=== PATIENT | male | born 1935 | race Caucasian/White ===

== ENCOUNTER 2016-10-29 07:30 | Day surgery (SDC) | payer MEDICARE, OTHER ==
[~2016-10-29 07:30] MED LIST: CYCLOPENTOLATE 1% OPHTH DROPS 2 ML ONE; KETOROLAC 0.45% OPHTH DROPS ONE; PHENYLEPHRINE 2.5% OPHTH 2 ML DROPS ONE; PROPARACAINE 0.5% OPHTH DROPS 15 ML ONE
[2016-10-29] MEDS ORDERED: BRIMONIDINE 0.2% OPHTH DROPS 5 ML ONE (07:34)
[2016-10-29] MEDS ORDERED: LACTATED RINGERS 500 ML IV ONE (07:40)
[2016-10-29] MEDS ORDERED: KETOROLAC 0.45% OPHTH DROPS OPTH ONE (07:45)
[2016-10-29] MEDS ORDERED: PHENYLEPHRINE 2.5% OPHTH 2 ML DROPS OPTH ONE (07:45)
[2016-10-29] MEDS ORDERED: CYCLOPENTOLATE 1% OPHTH DROPS 2 ML OPTH ONE (07:45)
[2016-10-29] MEDS ORDERED: PROPARACAINE 0.5% OPHTH DROPS 15 ML OPTH ONE ×2 (07:45→08:57)
[2016-10-29] MEDS ORDERED: METOPROLOL 5 MG/5 ML VIAL IVP ONE (08:45)
[2016-10-29] MEDS ORDERED: MIDAZOLAM 2 MG/2 ML VIAL IVP ONE (08:45)
[2016-10-29] MEDS ORDERED: BRIMONIDINE 0.2% OPHTH DROPS 5 ML OPTH ONE (08:56)
[2016-10-29] MEDS ORDERED: BSS/LIDOCAINE/EPINEPHRINE 1 ML SYRINGE IO ONE ×2 (08:57)
[2016-10-29] MEDS ORDERED: EPINEPHrine 1 MG/ML AMP IVP ONE (08:57)
[2016-10-29] MEDS ORDERED: TIMOLOL 0.5% OPHTH DROPS OPTH ONE (08:57)
[2016-10-29] MEDS ORDERED: CHONDR SULF/HYALURONATE SYRINGE IO ONE (08:57)
[2016-10-29] MEDS ORDERED: TRIAMCIN/MOXIFLOX/VANCO 1 ML VIAL IO ONE ×2 (08:58)
[2016-10-29 09:30] VITALS: BP 118/66
--- NOTE | 2016-10-29 12:36 | OPERATIVE REPORT ---
DATE OF SURGERY: 10/29/2016 00:00:00 PREOPERATIVE DIAGNOSIS: Glaucoma, primary open angle glaucoma, poorly controlled with laser and top ical drops, therefore, cataract surgery was elected in an attempt to control his glaucoma. This is [facility] first cataract surgery. POSTOPERATIVE DIAGNOSIS: Glaucoma, primary open angle glaucoma, poorly controlled with laser and top ical drops, therefore, cataract surgery was elected in an attempt to control his glaucoma. This is [facility] first cataract surgery. NAME OF PROCEDURE: Phacoemulsification of posterior chamber intraocular lens implant, right eye. SURGEON: Dr. Ike Mendez ANESTHESIA: Monitored anesthesia care. COMPLICATIONS: None. OPERATIVE INDICATIONS: This is a 81-year-old man with some vision loss in the right eye due to 2+ nu clear sclerotic, 1+ cortical and 1+ anterior subcapsular cataract. However, cataract surgery again is being done for glaucoma. Best corrected visual acuity was 20/25 with glare to 20/70 in the right eye . INDICATIONS FOR SURGERY: Primarily glaucoma. He also had some difficulty driving in low light or at n ight and difficulty driving at night because of headlights. He was consented at length concerning ris ks and benefits of cataract surgery, after which he expressed a desire to proceed with surgery. OPERATIVE PROCEDURE: The patient was taken into OR #2 and placed under monitored anesthesia care. A s urgical time-out was conducted confirming correct patient, correct procedure and correct surgical sit e. He was given topical anesthesia and prepped and draped in the usual sterile fashion. The eye was e ntered at the 12 and 9 o'clock position. Intracameral Shugarcaine was injected into the anterior toño crissy followed by Viscoat. A continuous tear curvilinear capsulorrhexis was performed. The nucleus was hydrodissected and phacoemulsified. The cortex was evacuated using automated infusion aspiration. Pro visc was injected into the capsular bag and a 21.5 diopter intraocular lens inserted into the bag. Ap proximately 0.8 mL of a mixture of triamcinolone, moxifloxacin and vancomycin was injected subconjunc tivally in superior quadrant for infection, inflammation, and prophylaxis. I and A was used to evacua te the viscoelastic materials. The eye was inflated to physiologic pressure using balanced salt solut ion, found to be water tight. The patient was taken from the operating room in good condition, given postoperative instructions. JOB #: [id number] EXT JOB #:[id number]
== END 2016-10-29 07:31 | disposition home or self-care (01) ==
LOC: SDS 07:30
PROVIDERS: ATTEND Ophthalmology
PROC: 08RJ3JZ Replacement of Right Lens with Synthetic Substitute, Percutaneous Approach (ICD-10-PCS; principal; 2016-10-29 08:30)
DX: H40.1110 Primary open-angle glaucoma, right eye, stage unspecified (principal); M35.3 Polymyalgia rheumatica; Z87.891 Personal history of nicotine dependence; I10 Essential (primary) hypertension
CPT/HCPCS: 66984; A9270; J3490; V2632

== ENCOUNTER 2016-12-31 08:30 | Day surgery (SDC) | payer MEDICARE, OTHER ==
[~2016-12-31 08:30] MED LIST changes: +BRIMONIDINE 0.2% OPHTH DROPS 5 ML ONE; +TIMOLOL 0.5% OPHTH DROPS ONE
[2016-12-31] MEDS ORDERED: CYCLOPENTOLATE 1% OPHTH DROPS 2 ML OPTH ONE (08:55)
[2016-12-31] MEDS ORDERED: PHENYLEPHRINE 2.5% OPHTH 2 ML DROPS OPTH ONE (08:55)
[2016-12-31] MEDS ORDERED: PROPARACAINE 0.5% OPHTH DROPS 15 ML OPTH ONE ×2 (08:55→09:56)
[2016-12-31] MEDS ORDERED: KETOROLAC 0.45% OPHTH DROPS OPTH ONE (08:55)
[2016-12-31] MEDS ORDERED: LACTATED RINGERS 500 ML IV ONE (09:09)
[2016-12-31] MEDS ORDERED: MIDAZOLAM 2 MG/2 ML VIAL IVP ONE (09:50)
[2016-12-31] MEDS ORDERED: METOPROLOL 5 MG/5 ML VIAL IVP ONE (09:50)
[2016-12-31] MEDS ORDERED: EPINEPHrine 1 MG/ML AMP IVP ONE (09:55)
[2016-12-31] MEDS ORDERED: BRIMONIDINE 0.2% OPHTH DROPS 5 ML OPTH ONE (09:55)
[2016-12-31] MEDS ORDERED: CHONDR SULF/HYALURONATE SYRINGE IO ONE (09:55)
[2016-12-31] MEDS ORDERED: TIMOLOL 0.5% OPHTH DROPS OPTH ONE (09:56)
[2016-12-31] MEDS ORDERED: TRIAMCIN/MOXIFLOX/VANCO 1 ML VIAL IO ONE (09:57)
[2016-12-31] MEDS ORDERED: BSS/LIDOCAINE/EPINEPHRINE 1 ML SYRINGE IO ONE (09:57)
--- NOTE | 2016-12-31 10:32 | OPERATIVE REPORT ---
DATE OF SURGERY: 12/31/2016 00:00:00 PREOPERATIVE DIAGNOSIS: Poorly controlled open angle glaucoma. Cataract surgery is being performed in an attempt to control the glaucoma. Cataract surgery was performed on the right eye on 10/29/2016 and did eventually result in lowered pressures in that eye. POSTOPERATIVE DIAGNOSIS: Poorly controlled open angle glaucoma. Cataract surgery is being performed in an attempt to control the glaucoma. Cataract surgery was performed on the right eye on 10/29/2016 and did eventually result in lowered pressures in that eye. PROCEDURE: Phacoemulsification posterior chamber intraocular lens implant, left eye. SURGEON: Ike Mendez MD. ANESTHESIA: Monitored anesthesia care. COMPLICATIONS: None. OPERATIVE INDICATIONS: This is a 81-year-old man with glaucoma, unable to be controlled with laser for maximum tolerated medical therapy. He also has a 2+ nuclear sclerotic, 1+ cortical and 1+ anterior subcapsular cataract. His best corrected visual acuity was 20/20 with glare to 20/30, but again this surgery is being done to control glaucoma. Indications for surgery were primarily to control the open angle glaucoma; however, he does also have some complaints of difficulty driving at night and difficulty with headlights and difficulty with glare and bright lights. He was consented at length concerning the risks and benefits of cataract surgery, after which he expressed a desire to proceed with surgery. OPERATIVE PROCEDURE: The patient was taken into OR #2 and placed under monitored anesthesia care. A surgical time-out was conducted confirming the correct patient, correct procedure and correct surgical site. He was given topical anesthesia and then prepped and draped in the usual sterile fashion. The eye was entered at the 6- and 3 o'clock positions. Intracameral Shugarcaine was injected into the anterior chamber followed by Viscoat. A continuous tear curvilinear capsulorrhexis was performed. The nucleus was hydrodissected and phacoemulsified. The cortex was evacuated using automated infusion aspiration. Provisc was injected into the capsular bag, and a 20.5-diopter intraocular lens inserted into the bag. Approximately 0.7 mm of triamcinolone, moxifloxacin, and vancomycin was injected subconjunctivally in the superior quadrant for infection and inflammation prophylaxis. I/A was used to evacuate the viscoelastic materials. The eye was inflated to physiologic pressure using balanced salt solution and found to be watertight. The patient was taken from the operating room in good condition and given postoperative instructions. JOB #: [id number] EXT JOB #:[id number] KRIS
[2016-12-31 10:42] VITALS: BP 103/63
== END 2016-12-31 08:31 | disposition home or self-care (01) ==
LOC: SDS 08:30
PROVIDERS: ATTEND Ophthalmology
PROC: 08RK3JZ Replacement of Left Lens with Synthetic Substitute, Percutaneous Approach (ICD-10-PCS; principal; 2016-12-31 09:30)
DX: H25.812 Combined forms of age-related cataract, left eye (principal); H40.10X0 Unspecified open-angle glaucoma, stage unspecified; I10 Essential (primary) hypertension; M35.3 Polymyalgia rheumatica; Z79.52 Long term (current) use of systemic steroids
CPT/HCPCS: 66984; A9270; J3490; V2632

== ENCOUNTER 2017-10-11 12:31 | Outpatient (CLI) | payer MEDICARE, OTHER | END 2017-10-11 12:32 | disposition critical access hospital (66) | LOC: EMS 12:31 | PROVIDERS: ATTEND Surgery | DX: R06.02 Shortness of breath (principal); R07.9 Chest pain, unspecified | CPT/HCPCS: A0425; A0429 ==

== ENCOUNTER 2017-10-11 12:54 | Emergency (ER) | payer MEDICARE, OTHER ==
[2017-10-11] MEDS ORDERED: SODIUM CHLORIDE 0.9% 1,000 ML IV ONE (13:21)
[2017-10-11] MEDS ORDERED: IPRATROPIUM/ALBUTEROL 3 ML NEB INH STA (13:21)
[2017-10-11] MEDS ORDERED: DEXAMETHASONE 10 MG/ML VIAL IVP STA (13:22)
--- NOTE | 2017-10-11 13:24 | ED Physician Documentation ---
PD HPI URI - Stated complaint Stated Complaint: CP - Chief complaint Chief Complaint: Resp - History obtained from History obtained from: Patient, Family - History of Present Illness Timing - onset: How many weeks ago (1) Timing duration: Weeks (1) Timing details: Gradual onset, Still present Associated symptoms: Nasal congestion, Rhinorrhea, Productive cough, Dyspnea Contributing factors: Sick contact Improves by: Rest, Medication Worsened by: Activity, Breathing Similar symptoms before: Has not had sx before Recently seen: Clinic - Additional information Additional information: 82-year-old male has developed a cough and congestion over the past week. He is producing some yellow and green phlegm and is short of breath. He had something similar to this back in April and this resolved after about 2 months. He did not have the amount of wheezing that he has with this today. He has audible wheeze and was sent to the emergency department by his primary care clinic when they were not able to keep his oxygen saturations above 88% on room air. He did receive a single respiratory therapy treatment. Review of Systems Constitutional: reports: Myalgias, Fatigue. denies: Fever Eyes: denies: Loss of vision Ears: denies: Ear pain Nose: reports: Rhinorrhea / runny nose, Congestion Throat: denies: Sore throat Cardiac: reports: Chest pain / pressure, Pedal edema. denies: Palpitations, Calf pain Respiratory: reports: Dyspnea, Cough, Wheezing GI: denies: Abdominal Pain, Nausea, Vomiting : denies: Dysuria, Frequency PD PAST MEDICAL HISTORY - Past Medical History Past Medical History: Yes Cardiovascular: Hypertension Respiratory: None Endocrine/Autoimmune: None GI: None : None HEENT: Glaucoma, Macular degeneration, Chronic hearing loss Psych: None Musculoskeletal: Rheumatoid arthritis Derm: Other - Past Surgical History HEENT: Cataracts, Tonsil/Adenoidectomy Derm: Other - Present Medications Home Medications: Ambulatory Orders Medication Instructions Recorded Confirmed Dorzolamide HCl 10 ml OP DAILY 10/29/16 10/29/16 Ketorolac Tromethamine 5 ml OP DAILY 10/29/16 10/29/16 Latanoprost 0.005% Ophth Drops 40 drops EACHEYE DAILY 10/29/16 10/29/16 [Xalatan Ophth Drops] Lisinopril/Hydrochlorothiazide 1 each PO DAILY 08/03/17 08/03/17 [Lisinopril-Hctz 20-12.5 mg Tab] Metoprolol Succinate/Hctz 1 each PO DAILY 10/29/16 10/29/16 [Metoprolol ER-Hctz 50-12.5 mg] Timolol 0.5% Ophth Drops [Timoptic 75 drops EACHEYE DAILY 10/29/16 10/29/16 0.5% Ophth Drops] predniSONE [Prednisone] 10 mg PO DAILY 10/29/16 10/29/16 Albuterol Sulf [Ventolin Hfa 1 - 2 puffs INH Q4HR PRN #1 inhaler 10/11/17 Inhaler] Azithromycin [Zithromax] 250 mg PO DAILY #6 tablet 10/11/17 predniSONE [Deltasone] 10 mg PO DAILY #26 tablet 10/11/17 - Allergies Allergies/Adverse Reactions: Allergies Allergy/AdvReac Type Severity Reaction Status Date / Time No Known Drug Allergies Allergy Verified 10/29/16 08:08 - Social History Does the pt smoke?: No Smoking Status: Former smoker PD ED PE NORMAL - Vitals Vital signs reviewed: Yes (normal ) - General General: Alert and oriented X 3, Well developed/nourished, Other (coughing and audible wheeze is present ) - HEENT HEENT: Atraumatic, PERRL, EOMI, Ears normal, Other (dry mucous membranes dentures are fitting normally ) - Neck Neck: Supple, no meningeal sign, No bony TTP - Cardiac Cardiac: RRR, No murmur - Respiratory Respiratory: No respiratory distress, Other (right mid lung field rhonchi) - Abdomen Abdomen: Soft, Non tender - Back Back: No CVA TTP, No spinal TTP - Derm Derm: Normal color, Warm and dry, No rash - Extremities Extremities: No deformity, Other (trace edema bilaterally ) - Neuro Neuro: Alert and oriented X 3, senior scheduler 2-12 intact, No motor deficit, No sensory deficit, Normal speech Eye Opening: Spontaneous Motor: Obeys Commands Verbal: Oriented GCS Score: 15 - Psych Psych: Normal mood, Normal affect Results - Vitals Vitals: Vital Signs - 24 hr 10/11/17 10/11/17 10/11/17 13:06 13:44 15:00 Heart Rate 85 79 82 Respiratory 19 18 18 Rate Blood Pressure 128/60 111/68 O2 Saturation 97 93 Oxygen O2 Source Room air - Labs Labs: Laboratory Tests 10/11/17 10/11/17 10/11/17 13:30 13:30 13:30 WBC 11.8 H RBC 3.98 L Hgb 11.3 L Hct 34.4 L MCV 86.4 MCH 28.4 MCHC 32.8 RDW 14.3 Plt Count 268 MPV 7.0 L Neut # (Auto) 8.6 H Lymph # (Auto) 1.4 L [place] # (Auto) 1.6 H Eos # (Auto) 0.1 Baso # (Auto) 0.0 Absolute Nucleated RBC 0.00 Nucleated RBC % 0.0 Manual Slide Review Indicated RBC Morph Micro Appear 1+ ANISOCYTOSIS Sodium 136 Potassium 3.6 Chloride 97 L Carbon Dioxide 32 Anion Gap 7.0 BUN 31 H Creatinine 1.3 H Estimated GFR (MDRD) 53 L Glucose 127 H Calcium 8.5 Total Bilirubin 0.7 AST 33 ALT 29 Alkaline Phosphatase 40 L Troponin I < 0.04 Total Protein 7.0 Albumin 3.1 L Globulin 3.9 Albumin/Globulin Ratio 0.8 L Lipase 34 - Rads (name of study) 2 veiw chest Radiology: Prelim report reviewed (Impression acute on chronic lung disease consisting of bilateral lung infiltrates.), EMP read indepedently, See rad report Procedures - IVC sono (time) 1320 Bedside IVC sono: IVC measures (cm) (1.12), IVC collapsed c insp (cm) (completee ), Dehydration (est 1 liter deficit) PD MEDICAL DECISION MAKING - ED course Complexity details: reviewed old records, reviewed results, re-evaluated patient , considered differential, d/w patient, d/w family ED course: 82 y/o male with acute URI symptoms has pneumonia on x-ray exam. He has wheezing throughout and initially the breathing treatment does not seem to make much difference however a while after the treatment the patient feels an improvement in ease of breathing. He is administered IV decadron and IV rocephin as well. He is mildly dehydrated on interrogation of the IVC and is administered IV saline as well. - Sepsis Event Vital Signs: Vital Signs - 24 hr 10/11/17 10/11/17 10/11/17 13:06 13:44 15:00 Heart Rate 85 79 82 Respiratory 19 18 18 Rate Blood Pressure 128/60 111/68 O2 Saturation 97 93 Oxygen O2 Source Room air Departure - Departure Disposition: Home, Self Care Clinical Impression: Pneumonia Qualifiers: Pneumonia type: due to unspecified organism Laterality: bilateral Lung location : lower lobe of lung Qualified Code(s): J18.1 - Lobar pneumonia, unspecified organism Condition: Stable Instructions: ED Reactive Airway Disease, ED Pneumonia Adult Follow-Up: Yanely Batista PA [Primary Care Provider] - Prescriptions: Albuterol Sulf [Ventolin Hfa Inhaler] 1 - 2 puffs INH Q4HR PRN #1 inhaler PRN Reason: Shortness Of Air/Wheezing Azithromycin [Zithromax] 250 mg PO DAILY #6 tablet predniSONE [Deltasone] 10 mg PO DAILY #26 tablet
[2017-10-11 13:37] LABS: BASOPHILS % (AUTO) 0.4 %; EOSINOPHILS # (AUTO) 0.1 10^3/uL (0.0-0.7); EOSINOPHILS % (AUTO) 0.5 %; HGB - HEMOGLOBIN 11.3 g/dL (14.0-18.0); LYMPHOCYTES # (AUTO) 1.4 10^3/uL (1.5-3.5); LYMPHOCYTES % (AUTO) 12.2 %; MEAN CORPUSCULAR HEMOGLOBIN 28.4 pg (27.0-31.0); MEAN CORPUSCULAR HGB CONC 32.8 g/dL (32.0-36.0); MEAN CORPUSCULAR VOLUME 86.4 fL (80.0-94.0); MONOCYTES # (AUTO) 1.6 10^3/uL (0.0-1.0); MONOCYTES % (AUTO) 13.8 %; NEUTROPHILS # (AUTO) 8.6 10^3/uL (1.5-6.6); NEUTROPHILS % (AUTO) 73.1 %; PLT - PLATELET COUNT 268 10^3/uL (130-450); RED BLOOD COUNT 3.98 10^6/uL (4.70-6.10); RED CELL DISTRIBUTION WIDTH 14.3 % (12.0-15.0); WHITE BLOOD COUNT 11.8 x10^3/uL (4.8-10.8)
[2017-10-11 13:52] LABS: ALBUMIN 3.1 g/dL (3.2-5.5); ALBUMIN/GLOBULIN RATIO 0.8 (1.0-2.2); BILIRUBIN,TOTAL 0.7 mg/dL (0.2-1.0); CALCIUM 8.5 mg/dL (8.5-10.3); CREATININE 1.3 mg/dL (0.6-1.2)
[2017-10-11 14:08] LABS: RBC MORPHOLOGY (MULTIPLE) 1+ ANISOCYTOSIS (NORMAL)
--- NOTE | 2017-10-11 14:11 | XRAY Report ---
Procedure Date: 10/11/2017 Accession Number: [id number] / [id number] Procedure: XR - Chest 2 View X-Ray CPT Code: 66905 FULL RESULT: EXAM: CHEST RADIOGRAPHY EXAM DATE: 10/11/2017 01:38 PM. CLINICAL HISTORY: Shortness of breath and chest pain for several days. COMPARISON: None. TECHNIQUE: 2 views. FINDINGS: Lungs/Pleura: Faint bilateral wispy reticular nodular infiltrates, greatest on the right. Overexpanded lungs. No effusion, vascular congestion nor pneumothorax. Mediastinum: Heart and mediastinal contours are unremarkable. Other: None. IMPRESSION: Acute on chronic lung disease consisting of bilateral lung infiltrates. RADIA
[2017-10-11 15:00] VITALS: BP 111/68
[2017-10-11] MEDS ORDERED: cefTRIAXone 1 GM in SODIUM CHLORIDE 0.9% MINIBAG 100 ML IV STA (15:01)
== END 2017-10-11 15:49 | disposition home or self-care (01) ==
LOC: EDSEX → EDUNIT# → ED 12:54
DX: J18.1 Lobar pneumonia, unspecified organism (principal); E86.0 Dehydration
CPT/HCPCS: 36415; 71046; 80053; 83690; 84484; 85025; 93005; 94640; 94664; 96374; 96375; 99283; 99284

== ENCOUNTER 2018-10-12 12:04 | Outpatient (CLI) | payer MEDICARE, OTHER ==
--- NOTE | 2018-10-12 16:06 | XRAY Report ---
Reason: COPD Procedure Date: 10/12/2018 Accession Number: [id number] / [id number] Procedure: XR - Chest 2 View X-Ray CPT Code: 06911 FULL RESULT: EXAM: CHEST RADIOGRAPHY EXAM DATE: 10/12/2018 12:50 PM. CLINICAL HISTORY: COPD. Wheezing, shortness of air for 1 month, cough. COMPARISON: CHEST 2 VIEW 10/11/2017 1:33 PM. TECHNIQUE: 2 views. FINDINGS: Lungs/Pleura: No focal opacities evident. No pleural effusion. No pneumothorax. Top normal lung volumes with mild flattening of diaphragms. Mediastinum: Heart and mediastinal contours are unremarkable. Other: None. IMPRESSION: Stable exam with no acute airspace disease detected. Redemonstration of top normal lung volumes with flattened diaphragms, compatible with provided history of COPD. RADIA
== END 2018-10-12 12:05 | disposition home or self-care (01) ==
LOC: DI 12:04
PROVIDERS: ATTEND Physician Assistant
DX: J44.9 Chronic obstructive pulmonary disease, unspecified (principal)
CPT/HCPCS: 71046

== ENCOUNTER 2018-10-25 08:00 | Outpatient (CLI) | payer MEDICARE, OTHER ==
[2018-10-25 18:34] LABS: BASOPHILS # (AUTO) 0.1 10^3/uL (0.0-0.1); BASOPHILS % (AUTO) 0.8 %; EOSINOPHILS # (AUTO) 0.2 10^3/uL (0.0-0.7); EOSINOPHILS % (AUTO) 2.1 %; HGB - HEMOGLOBIN 13.1 g/dL (14.0-18.0); LYMPHOCYTES # (AUTO) 1.7 10^3/uL (1.5-3.5); LYMPHOCYTES % (AUTO) 24.3 %; MEAN CORPUSCULAR HEMOGLOBIN 28.6 pg (27.0-31.0); MEAN CORPUSCULAR HGB CONC 31.6 g/dL (32.0-36.0); MEAN CORPUSCULAR VOLUME 90.6 fL (80.0-94.0); MONOCYTES # (AUTO) 0.6 10^3/uL (0.0-1.0); MONOCYTES % (AUTO) 8.9 %; NEUTROPHILS # (AUTO) 4.6 10^3/uL (1.5-6.6); NEUTROPHILS % (AUTO) 63.5 %; PLT - PLATELET COUNT 213 10^3/uL (130-450); RED BLOOD COUNT 4.58 10^6/uL (4.70-6.10); RED CELL DISTRIBUTION WIDTH 14.1 % (12.0-15.0); WHITE BLOOD COUNT 7.2 x10^3/uL (4.8-10.8)
[2018-10-25 18:53] LABS: ALBUMIN 3.8 g/dL (3.2-5.5); ALBUMIN/GLOBULIN RATIO 1.2 (1.0-2.2); ALKALINE PHOSPHATASE 40 IU/L (42-121); ALT ALANINE AMINOTRANSFERASE 14 IU/L (10-60); AST ASPARTATE AMINOTRANSFERASE 19 IU/L (10-42); BILIRUBIN,TOTAL 1.2 mg/dL (0.2-1.0); BUN - BLOOD UREA NITROGEN 27 mg/dL (6-20); CALCIUM 9.1 mg/dL (8.5-10.3); CARBON DIOXIDE - CO2 29 mmol/L (21-32); CHLORIDE 102 mmol/L (101-111); CHOL/HDL RATIO 5.1 (<5.0); CHOLESTEROL 199 mg/dL; CREATININE 1.2 mg/dL (0.6-1.2); GFR - MDRD 58 (>89); GLUCOSE 100 mg/dL (70-100); HDL CHOLESTEROL 39 mg/dL; LDL CHOLESTEROL,CALCULATED 137 mg/dL; LDL/HDL RATIO 3.5 (<3.6); SODIUM 143 mmol/L (135-145); TOTAL PROTEIN 6.9 g/dL (6.7-8.2); VLDL CHOLESTEROL 23 mg/dL
[2018-10-26 14:56] LABS: % IRON SATURATION 31 % (20-50); IRON 89 ug/dL (45-182); TOTAL IRON BINDING CAPACITY 290 ug/dL (250-450); TRANSFERRIN 207 mg/dL (180-329)
== END 2018-10-25 23:59 | disposition home or self-care (01) ==
LOC: LAB.WCP 08:00
PROVIDERS: ATTEND Physician Assistant
DX: I10 Essential (primary) hypertension (principal); D64.9 Anemia, unspecified; Z79.899 Other long term (current) drug therapy
CPT/HCPCS: 36415; 80053; 80061; 82607; 82746; 83540; 83721; 84466; 85025

== ENCOUNTER 2019-03-23 08:00 | Outpatient (CLI) | payer MEDICARE, OTHER | END 2019-03-23 23:59 | disposition home or self-care (01) | LOC: LAB.WCP 08:00 | PROVIDERS: ATTEND Family Medicine | DX: R31.9 Hematuria, unspecified (principal) | CPT/HCPCS: 81002 ==

== ENCOUNTER 2019-03-24 11:44 | Outpatient (CLI) | payer MEDICARE, OTHER | END 2019-03-24 11:45 | disposition home or self-care (01) | LOC: LAB 11:44 | PROVIDERS: ATTEND Family Medicine | DX: R31.9 Hematuria, unspecified (principal) | CPT/HCPCS: 87086 ==

== ENCOUNTER 2020-01-26 07:00 | Outpatient (CLI) | payer MEDICARE, OTHER ==
[2020-01-26 18:36] LABS: BILIRUBIN,URINE NEGATIVE (NEGATIVE); GLUCOSE, URINE (UA) NEGATIVE (NEGATIVE); KETONES,URINE (UA) NEGATIVE (NEGATIVE); LEUKOCYTE ESTERASE, URINE NEGATIVE (NEGATIVE); NITRITE,URINE NEGATIVE (NEGATIVE); OCCULT BLOOD,URINE LARGE (NEGATIVE); PH,URINE 5.5 PH (5.0-7.5); PROTEIN,URINE NEGATIVE (NEGATIVE); UROBILINOGEN,URINE 0.2 (NORMAL) E.U./dL (NORMAL)
[2020-01-26 18:49] LABS: CLARITY,URINE HAZY (CLEAR)
[2020-01-26 19:00] LABS: BACTERIA,URINE None Seen /HPF (None Seen); SQUAMOUS EPITHELIAL CELL,UR NONE SEEN (<= Few)
== END 2020-01-26 23:59 | disposition home or self-care (01) ==
LOC: LAB.R 07:00
PROVIDERS: ATTEND Physician Assistant
DX: R31.9 Hematuria, unspecified (principal)
CPT/HCPCS: 81001; 87086

== ENCOUNTER 2020-01-26 15:47 | Outpatient (CLI) | payer MEDICARE, OTHER ==
[2020-01-26 18:20] LABS: BASOPHILS # (AUTO) 0.1 10^3/uL (0.0-0.1); BASOPHILS % (AUTO) 0.6 %; EOSINOPHILS # (AUTO) 0.3 10^3/uL (0.0-0.7); EOSINOPHILS % (AUTO) 4.1 %; HGB - HEMOGLOBIN 13.5 g/dL (14.0-18.0); LYMPHOCYTES # (AUTO) 2.2 10^3/uL (1.5-3.5); MEAN CORPUSCULAR HEMOGLOBIN 28.7 pg (27.0-31.0); MEAN CORPUSCULAR HGB CONC 31.7 g/dL (32.0-36.0); MEAN CORPUSCULAR VOLUME 90.4 fL (80.0-94.0); MEAN PLATELET VOLUME 9.7 fL (7.4-11.4); MONOCYTES # (AUTO) 0.7 10^3/uL (0.0-1.0); MONOCYTES % (AUTO) 8.8 %; NEUTROPHILS # (AUTO) 4.5 10^3/uL (1.5-6.6); NEUTROPHILS % (AUTO) 58.1 %; PLT - PLATELET COUNT 204 10^3/uL (130-450); RED BLOOD COUNT 4.71 10^6/uL (4.70-6.10); RED CELL DISTRIBUTION WIDTH 13.2 % (12.0-15.0); WHITE BLOOD COUNT 7.7 x10^3/uL (4.8-10.8)
[2020-01-26 18:26] LABS: ALBUMIN 3.9 g/dL (3.2-5.5); ALBUMIN/GLOBULIN RATIO 1.3 (1.0-2.2); BILIRUBIN,TOTAL 0.7 mg/dL (0.2-1.0); CALCIUM 9.2 mg/dL (8.5-10.3); CREATININE 1.4 mg/dL (0.6-1.2)
[2020-01-26 18:38] LABS: PSA FREE 0.458 ng/mL (0.16-2.81)
[2020-01-26 18:40] LABS: PSA TOTAL 2.364 ng/mL (0.000-2.000)
== END 2020-01-26 23:59 | disposition home or self-care (01) ==
LOC: LAB.WCP 15:47
PROVIDERS: ATTEND Physician Assistant
DX: R31.9 Hematuria, unspecified (principal)
CPT/HCPCS: 36415; 80053; 84153; 84154; 85025

== ENCOUNTER 2020-02-05 10:48 | Outpatient (CLI) | payer MEDICARE ==
[2020-02-05] MEDS ORDERED: IOVERSOL 320 100 ML VIAL IVP ONE ×2 (11:01→11:13)
--- NOTE | 2020-02-05 15:33 | CT Report ---
PROCEDURE: IVP INDICATIONS: HEMATURIA CONTRAST: IV CONTRAST: Optiray 320 ml: 140 PO CONTRAST: *NO PO CONTRAST TECHNIQUE: After the administration of intravenous contrast, 5 mm thick sections acquired from the diaphragms to the symphysis. 5 mm thick coronal and sagittal reformats were acquired. For radiation dose reducti on, the following was used: automated exposure control, adjustment of mA and/or kV according to wilda ent size. COMPARISON: None. FINDINGS: Image quality: Excellent. Lung bases: Lung bases are clear. Moderate coronary and aortic valvular calcification. Moderate zita cending thoracic aortic atherosclerotic disease. Heart size is normal. Urinary system: Both kidneys are normal in size and enhancement. 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 The right mid ureter demonstrates a segment of irregular wall thickening and enhancement just above t he bony pelvis for length of about 3.2 cm. This results in increased caliber of the ureter measuring up to about 10 mm. No significant periureteric inflammation. No evidence of nephrolithiasis. A 2.6 cm cyst is present in the midpole of the left kidney. Subcentimeter cysts are seen in the left upper an d right lower pole. Contrast-filled renal calyces are normal in morphology. The urinary bladder is on ly partially filled but the wall has normal morphology given this limitation. The prostate gland is m ildly enlarged. Solid organs: Numerous thin-walled cysts of varying sizes throughout the liver, the largest measurin g only about 2.7 cm, and most less than 1 cm. The spleen is normal. There is mild diffuse thickening of the medial limb of the right adrenal gland. No discrete nodules. Gallbladder is unremarkable. Bi liary system is non dilated. Pancreas enhances normally. Peritoneum and bowel: Bowel loops demonstrate normal wall thickness and caliber. No free fluid or a ir. Nodes and vessels: Heavy abdominal aortic and branch artery calcification. No aortic aneurysm. No re troperitoneal or mesenteric adenopathy by size criteria. Aorta and inferior vena cava are normal in size. Abdominal wall: No ventral hernias. Pelvis: No pathologic free pelvic fluid. No inguinal hernias or adenopathy. Bones: No suspicious bony lesions. Severe degenerative changes in the hips and moderate degenerativ e change throughout the spine. No vertebral body compression fractures. IMPRESSION: 1. Irregular, 3.2 cm long segment of ureteral thickening in the right mid ureter just above the level of the pelvic inlet. While this may represent benign etiology such as debris or chronic stricture, n eoplasm such as transitional cell carcinoma should be excluded. Urology consult and ureteroscopy is r ecommended. 2. 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 3. No visible suspicious upper pole collecting system lesions. 4. Heavy coronary artery calcification. Reviewed by: Hilda Rod MD on 02/05/2020 3:32 PM PST Approved by: Hilda Rod MD on 02/05/2020 3:32 PM PST Station ID: [id number]
== END 2020-02-05 10:49 | disposition home or self-care (01) ==
LOC: DI 10:48
PROVIDERS: ATTEND Physician Assistant
DX: R31.9 Hematuria, unspecified (principal); N28.89 Other specified disorders of kidney and ureter; N28.1 Cyst of kidney, acquired; K76.89 Other specified diseases of liver
CPT/HCPCS: 74178; Q9967

== ENCOUNTER 2020-03-11 12:39 | Outpatient (CLI) | payer MEDICARE | END 2020-03-11 12:40 | disposition home or self-care (01) | LOC: LAB 12:39 | PROVIDERS: ATTEND Urology | DX: R93.89 Abnormal findings on diagnostic imaging of other specified body structures (principal); Z87.448 Personal history of other diseases of urinary system; R35.1 Nocturia; R39.15 Urgency of urination; R35.0 Frequency of micturition; Z11.9 Encounter for screening for infectious and parasitic diseases, unspecified | CPT/HCPCS: 87086 ==

== ENCOUNTER 2020-06-28 08:00 | Outpatient (CLI) | payer MEDICARE ==
[2020-06-28 18:36] LABS: BASOPHILS # (AUTO) 0.1 10^3/uL (0.0-0.1); BASOPHILS % (AUTO) 0.9 %; EOSINOPHILS # (AUTO) 0.4 10^3/uL (0.0-0.7); EOSINOPHILS % (AUTO) 6.8 %; HCT - HEMATOCRIT 43.6 % (42.0-52.0); HGB - HEMOGLOBIN 13.7 g/dL (14.0-18.0); LYMPHOCYTES # (AUTO) 1.3 10^3/uL (1.5-3.5); LYMPHOCYTES % (AUTO) 19.7 %; MEAN CORPUSCULAR HEMOGLOBIN 29.1 pg (27.0-31.0); MEAN CORPUSCULAR HGB CONC 31.4 g/dL (32.0-36.0); MEAN CORPUSCULAR VOLUME 92.8 fL (80.0-94.0); MEAN PLATELET VOLUME 10.3 fL (7.4-11.4); MONOCYTES # (AUTO) 0.6 10^3/uL (0.0-1.0); MONOCYTES % (AUTO) 9.4 %; NEUTROPHILS # (AUTO) 4.1 10^3/uL (1.5-6.6); PLT - PLATELET COUNT 198 10^3/uL (130-450); RED CELL DISTRIBUTION WIDTH 13.8 % (12.0-15.0); WHITE BLOOD COUNT 6.5 x10^3/uL (4.8-10.8)
[2020-06-28 19:03] LABS: ALBUMIN 4.2 g/dL (3.2-5.5); ALBUMIN/GLOBULIN RATIO 1.3 (1.0-2.2); ALKALINE PHOSPHATASE 42 IU/L (42-121); ALT ALANINE AMINOTRANSFERASE 13 IU/L (10-60); AST ASPARTATE AMINOTRANSFERASE 19 IU/L (10-42); BILIRUBIN,TOTAL 1.6 mg/dL (0.2-1.0); BUN - BLOOD UREA NITROGEN 27 mg/dL (6-20); CALCIUM 9.2 mg/dL (8.5-10.3); CARBON DIOXIDE - CO2 32 mmol/L (21-32); CHLORIDE 100 mmol/L (101-111); CHOL/HDL RATIO 5.2 (<5.0); CHOLESTEROL 204 mg/dL; CREATININE 1.4 mg/dL (0.6-1.2); GFR - MDRD 48 (>89); GLUCOSE 96 mg/dL (70-100); HDL CHOLESTEROL 39 mg/dL; LDL CHOLESTEROL,CALCULATED 139 mg/dL; LDL/HDL RATIO 3.6 (<3.6); SODIUM 141 mmol/L (135-145); TOTAL PROTEIN 7.5 g/dL (6.7-8.2); TRIGLYCERIDES 129 mg/dL; VLDL CHOLESTEROL 26 mg/dL
[2020-06-28 19:20] LABS: THYROID STIMULATING HORMONE 2.87 uIU/mL (0.34-5.60)
== END 2020-06-28 23:59 | disposition home or self-care (01) ==
LOC: LAB.WCP 08:00
PROVIDERS: ATTEND Internal Medicine
DX: D64.9 Anemia, unspecified (principal); I25.10 Atherosclerotic heart disease of native coronary artery without angina pectoris; I10 Essential (primary) hypertension; Z79.899 Other long term (current) drug therapy
CPT/HCPCS: 36415; 80053; 80061; 83721; 84153; 84443; 85025

== ENCOUNTER 2020-11-28 04:41 | Outpatient (CLI) | payer MEDICARE | END 2020-11-28 04:42 | disposition E | LOC: EMS 04:41 ==